=== PATIENT | female | born 1960 | race African-American/Black ===

== ENCOUNTER 2019-07-08 08:13 | Outpatient (CLI) | payer MEDICARE ==
--- NOTE | 2019-07-08 09:00 | MMO ---
Bilateral MAMMO Bilat Screen DDI+TAINA. CLINICAL HISTORY: Patient is 59 years old and is seen for screening. The patient has the following family history of breast cancer: maternal grandmother. The patient has no personal history of cancer. The patient has a history of left Excisional Biopsy in 1991 - negative biopsy. VIEWS: The views performed were: bilateral craniocaudal with tomosynthesis and bilateral mediolateral oblique with tomosynthesis. FILMS COMPARED: The present examination has been compared to prior imaging studies performed at on 05/20/2012 and 10/18/2014. This study has been interpreted with the assistance of computer-aided detection. MAMMOGRAM FINDINGS: There are scattered fibroglandular densities. There is a focal asymmetry with associated calcifications seen in the central region of the right breast. In the left breast, there are no suspicious masses, calcifications or areas of architectural distortion. IMPRESSION: FOCAL ASYMMETRY IN THE RIGHT BREAST REQUIRES ADDITIONAL EVALUATION. AN ULTRASOUND EXAM IS RECOMMENDED IF NEEDED. RECOMMEND DIAGNOSTIC MAMMOGRAM. THE RESULTS OF THIS EXAM WERE SENT TO THE PATIENT. ACR BI-RADS Category 0 - Incomplete: Need additional imaging evaluation. [facility] will notify the patient of the need for additional imaging services. MAMMOGRAPHY NOTE: 1. A negative mammogram report should not delay a biopsy if a dominant of clinically suspicious mass is present. 2. Approximately 10% to 15% of breast cancers are not detected by mammography. 3. Adenosis and dense breasts may obscure an underlying neoplasm. Reported by: NATHALIA NAVARRO MD Electonically Signed: [id number]
== END 2019-07-08 08:14 | disposition home or self-care (01) ==
LOC: BICMAMMO 08:13
PROVIDERS: ATTEND Family Medicine
DX: Z12.31 Encounter for screening mammogram for malignant neoplasm of breast (principal); Z80.3 Family history of malignant neoplasm of breast; N64.89 Other specified disorders of breast
CPT/HCPCS: 77063; 77067

== ENCOUNTER 2019-07-18 14:21 | Outpatient (CLI) | payer MEDICARE ==
--- NOTE | 2019-07-18 14:54 | MMO ---
Right Breast MAMMO Unilat Diag DDI RT+TAINA. CLINICAL HISTORY: Patient is 59 years old and is seen for diagnostic exam. The patient has a history of left Excisional Biopsy in 1991 - negative biopsy. VIEWS: The views performed were: . FILMS COMPARED: The present examination has been compared to prior imaging studies performed at 10/18/2014 and 07/08/2019. This study has been interpreted with the assistance of computer-aided detection. MAMMOGRAM FINDINGS: There are scattered fibroglandular densities. The new calcs have an indeterminate appearance and should be biopsied. IMPRESSION: FINDING IN THE RIGHT BREAST IS SUSPICIOUS. A STEREOTACTIC BREAST BIOPSY IS RECOMMENDED. THE RESULTS OF THIS EXAM WERE SENT TO THE PATIENT. ACR BI-RADS Category 4 - Suspicious abnormality - biopsy should be considered MAMMOGRAPHY NOTE: 1. A negative mammogram report should not delay a biopsy if a dominant of clinically suspicious mass is present. 2. Approximately 10% to 15% of breast cancers are not detected by mammography. 3. Adenosis and dense breasts may obscure an underlying neoplasm. Reported by: ARMANDO KIRAN MD Electonically Signed: [id number]
== END 2019-07-18 14:22 | disposition home or self-care (01) ==
LOC: BICMAMMO 14:21
PROVIDERS: ATTEND Family Medicine
DX: R92.2 Inconclusive mammogram (principal)
CPT/HCPCS: 77065; G0279

== ENCOUNTER 2019-09-02 07:31 | Outpatient (CLI) | payer MEDICARE ==
[2019-09-02 12:39] LABS: #Eosinphils 0.1 thou/uL (0.0-0.7); #Lymphocytes 3.3 thou/uL (1.20-3.40); #Monocytes 0.3 thou/uL (0.11-0.59); #Neutrophils 3.3 thou/uL (1.40-6.50); %Basophils 0.2 % (0.0-1.0); %Eosinophils 1.5 % (0.0-10.0); %Lymphocytes 46.3 % (21.0-51.0); %Monocytes 4.9 % (0.0-10.0); %Neutrophils 47.2 % (42.0-75.0); Hemoglobin 14.4 g/dL (12.0-16.0); Mean Corpuscular HGB CONC 32.4 g/dL (32.0-36.0); Mean Corpuscular Hemoglobin 27.8 pg (27.0-31.0); Mean Corpuscular Volume 85.9 fL (78.0-98.0); Mean Platelet Volume 7.9 fL (7.4-10.4); Platelet Count 255 thou/uL (130-400); RBC Distribution Width 12.7 % (11.5-14.5); Red Blood Cell (RBC) Count 5.18 mill/uL (4.20-5.40); White Blood Cell (WBC) Count 7.1 thou/uL (4.8-10.8)
[2019-09-02 13:02] LABS: Anion Gap 13 mmol/L (10-20); BUN (Urea Nitrogen) 11 mg/dL (9.8-20.1); Calc. Creatinine Clearance 0 mL/min (70-130); Calcium 9.6 mg/dL (7.8-10.44); Carbon Dioxide 26 mmol/L (22-29); Chloride 106 mmol/L (98-107); Estimated GFR-MDRD 90; Glucose 124 mg/dL (70-105); Potassium 4.5 mmol/L (3.5-5.1); Sodium 140 mmol/L (136-145)
== END 2019-09-02 07:32 | disposition home or self-care (01) ==
LOC: LABBT 07:31
PROVIDERS: ATTEND Specialist
DX: Z01.812 Encounter for preprocedural laboratory examination (principal); R92.1 Mammographic calcification found on diagnostic imaging of breast
CPT/HCPCS: 80048; 85025

== ENCOUNTER 2019-09-06 06:51 | Day surgery (SDC) | payer MEDICARE ==
[2019-09-02 12:07] VITALS: BMI 42.3
[2019-09-06] MEDS ORDERED: Acetaminophen 500 MG TAB ONE (07:53)
[2019-09-06] MEDS ORDERED: Ketorolac Tromethamine 30 MG/ML VIAL ONE (07:53)
[2019-09-06] MEDS ORDERED: Midazolam HCl 2 mg/2 ml Vial ONE (08:24)
[2019-09-06] MEDS ORDERED: HYDROmorphone 0.5 MG/0.5 ML SYRINGE ONE (08:24)
[2019-09-06] MEDS ORDERED: Fentanyl 100 MCG/2 ML VIAL ONE (08:24)
[2019-09-06] MEDS ORDERED: Lidocaine 1% w/Epinephrine 1:100K 20 ML VIAL ONE (08:26)
[2019-09-06] MEDS ORDERED: Bupivacaine 0.25% HCL 30 ML VIAL ONE (08:26)
--- NOTE | 2019-09-06 09:47 | MMO ---
Needle localization right breast microcalcifications mammographic guided HISTORY: Abnormal mammogram. Microcalcifications. FINDINGS: After explaining the procedure and answering all questions, the microcalcification cluster deep within the central aspect of the right breast was visualized. Sterile technique, buffered local anesthesia, mammographic guidance, and a medial approach were used to carefully advance a 10 cm [place] needle and wire through the cluster of microcalcifications. Needle tip remained 3.0 cm beyond the center of the microcalcifications. Final images were marked and sent with the patient for day surgery. Patient tolerated the procedure well and was transferred in good condition. IMPRESSION: Technically successful needle localization right breast microcalcifications.
[2019-09-06] MEDS ORDERED: PROPOFOL 200 MG/20 ML VIAL ONE (09:59)
[2019-09-06] MEDS ORDERED: Dexamethasone 20 MG/5 ML VIAL ONE (09:59)
[2019-09-06] MEDS ORDERED: Lidocaine 1% PF 5 ML VIAL ONE (09:59)
[2019-09-06] MEDS ORDERED: Ondansetron PF 4 MG/2 ML Vial ONE (09:59)
--- NOTE | 2019-09-06 12:05 | MMO ---
MAMMO Surgial Specimen HISTORY: Needle localization of breast calcifications. COMPARISON: Needle localization exam done earlier. FINDINGS: This breast specimen confirms the presence of breast calcifications. IMPRESSION: Successfully obtained breast calcifications.
--- NOTE | 2019-09-06 18:13 | OP ---
DATE OF PROCEDURE: 09/06/2019 PREOPERATIVE DIAGNOSIS: Right breast calcifications. POSTOPERATIVE DIAGNOSIS: Right breast calcifications. PROCEDURE PERFORMED: Mammographic needle localized right breast excisional biopsy. ANESTHESIA: General endotracheal. INDICATIONS FOR PROCEDURE: The patient is a 59-year-old black female. Recent mammography reveals concerning cluster of microcalcifications in the central right breast. She has declined stereotactic biopsy secondary to anxiety. She presents at this time for mammographic needle localized excisional breast biopsy. DESCRIPTION OF PROCEDURE: The patient was taken to the mammography suite preoperatively, where mammographic needle localization of the calcifications was performed. This was performed with a 9 cm localizing needle and was passed in a [id number] fashion. Informed consent was obtained. She was taken to the operating room, where general anesthesia was obtained with the patient in supine position. Right breast and localized needle were prepped with ChloraPrep and draped in sterile fashion. The mammogram of the localizing needle was examined revealing that the calcifications were on the midportion of the needle. It was not felt to be necessary to dissect along the entire 9 cm of the needle. I, therefore, created a counterincision more medially on the breast. Dissection was carried through skin and subcutaneous tissue. Once I was about a centimeter into the breast, I dissected medially to find the localizing needle. This was identified at the point that it was about 6 cm from the tip of the needle. At this point, the needle was removed, and the wire was replaced to the incision. The tissue into which the wire entered was grasped with Allis clamps. A wide dissection of the tissue into which the wire entered was performed using a combination of electrocautery and sharp dissection. The specimen was removed intact. It was oriented with sutures and submitted for specimen mammography. This revealed removal of microcalcifications within the specimen. The wound was irrigated, and meticulous hemostasis was obtained with electrocautery. Deep layers of the wound were closed with a running suture of 3-0 Monocryl. The biopsy cavity was then instilled with additional local anesthetic using a mix of 1% lidocaine with epinephrine as well as 0.25% Marcaine. Skin edges were approximated with running subcuticular suture of 4-0 Monocryl. Dermabond was placed externally. There were no complications. The patient tolerated the procedure well and was taken to recovery room in stable condition. Job ID: [id number]
== END 2019-09-06 11:25 | disposition home or self-care (01) ==
LOC: SDC 06:51
PROVIDERS: ATTEND Specialist
PROC: 0HBT3ZX Excision of Right Breast, Percutaneous Approach, Diagnostic (ICD-10-PCS; principal; 2019-09-06)
DX: D05.81 Other specified type of carcinoma in situ of right breast (principal); F41.9 Anxiety disorder, unspecified; E78.5 Hyperlipidemia, unspecified; J45.909 Unspecified asthma, uncomplicated; Z79.1 Long term (current) use of non-steroidal anti-inflammatories (NSAID); Z79.51 Long term (current) use of inhaled steroids; Z79.82 Long term (current) use of aspirin; Z79.899 Other long term (current) drug therapy; Z88.8 Allergy status to other drugs, medicaments and biological substances
CPT/HCPCS: 19281; 76098; 88307; 88341; 88342; J0690; J1100; J1170; J1885; J2001; J2250; J2405; J2704; J3010; S0020

== ENCOUNTER 2019-09-27 05:50 | Day surgery (SDC) | payer MEDICARE ==
[2019-09-26 13:40] VITALS: BMI 42.1
[2019-09-27] MEDS ORDERED: Acetaminophen 500 MG TAB ONE (06:06)
[2019-09-27] MEDS ORDERED: Ketorolac Tromethamine 30 MG/ML VIAL ONE ×2 (06:06→09:57)
[2019-09-27] MEDS ORDERED: Fentanyl 100 MCG/2 ML VIAL ONE ×3 (06:39→08:50)
[2019-09-27] MEDS ORDERED: Bupivacaine 0.25% HCL 30 ML VIAL ONE (06:51)
[2019-09-27] MEDS ORDERED: Lidocaine 1% w/Epinephrine 1:100K 20 ML VIAL ONE (06:51)
[2019-09-27] MEDS ORDERED: Ondansetron PF 4 MG/2 ML Vial ONE (09:57)
[2019-09-27] MEDS ORDERED: PHENYLEPHRINE-NS 100 MCG/ML 10 ML SYRINGE ONE (09:57)
[2019-09-27] MEDS ORDERED: Dexamethasone 20 MG/5 ML VIAL ONE (09:57)
[2019-09-27] MEDS ORDERED: PROPOFOL 200 MG/20 ML VIAL ONE (09:57)
[2019-09-27] MEDS ORDERED: Lidocaine 1% PF 5 ML VIAL ONE (09:57)
--- NOTE | 2019-09-27 11:15 | OP ---
DATE OF PROCEDURE: 09/27/2019 PREOPERATIVE DIAGNOSES: Right breast ductal carcinoma in situ, recent right breast excisional biopsy with positive margins. POSTOPERATIVE DIAGNOSES: Right breast ductal carcinoma in situ, recent right breast excisional biopsy with positive margins. PROCEDURE PERFORMED: Re-excision of right breast lumpectomy margins. ANESTHESIA: General endotracheal. INDICATIONS FOR PROCEDURE: The patient is an obese 59-year-old black female. She had undergone a right breast needle localized excisional biopsy of a large area of calcifications in the upper right breast. She would not tolerate a needle biopsy in the absence of surgery previously because of needle-related anxiety. Therefore, her initial surgery was an excisional biopsy. She proved to have a large field of ductal carcinoma in situ. The margins were reported as all being negative; however, they were all found to be very close except for the medial margin. She was therefore returned to the operating room at this time for re-excision of margins. DESCRIPTION OF PROCEDURE: Informed consent was obtained. The patient was taken to the operating room, where general endotracheal anesthesia was obtained with the patient in supine position. Right breast was prepped with ChloraPrep and draped in sterile fashion. Local anesthetic was infiltrated using a mixture of 0.25% Marcaine and 1% lidocaine with epinephrine. Prior incision was reopened. Dissection was carried into the breast. There was probably about a centimeter and a half of tissue deep to the skin before the biopsy cavity was encountered. The seroma was aspirated. I excised the biopsy cavity in 2 specimens, one as the superior margin and the other as the inferior margin. The superior margin curved around to the medial and the lateral aspect as well as down on to the posterior aspect. The inferior margin curved around to the medial aspect, the lateral aspect and the posterior aspect. The entire biopsy cavity was re-excised with these 2 margins. They were each tagged for orientation with sutures. The wound was irrigated and all irrigant was aspirated. Meticulous hemostasis was obtained. The wound was closed in layers with 3-0 and 4-0 Monocryl suture. Additional local anesthetic was instilled into the wound and infiltrated into the breast. Dermabond was placed externally. There were no complications. The patient tolerated the procedure well and was taken to recovery room in stable condition. Job ID: [id number]
== END 2019-09-27 10:26 | disposition home or self-care (01) ==
LOC: SDC 05:50
PROVIDERS: ATTEND Specialist
PROC: 0HBT0ZZ Excision of Right Breast, Open Approach (ICD-10-PCS; principal; 2019-09-27)
DX: D05.11 Intraductal carcinoma in situ of right breast (principal); N60.31 Fibrosclerosis of right breast; E78.5 Hyperlipidemia, unspecified; J45.909 Unspecified asthma, uncomplicated; Z79.82 Long term (current) use of aspirin; Z79.899 Other long term (current) drug therapy; Z88.8 Allergy status to other drugs, medicaments and biological substances
CPT/HCPCS: 88307; J0690; J1100; J1885; J2001; J2405; J2704; J3010; S0020

== ENCOUNTER 2019-12-05 13:05 | Outpatient (CLI) | payer MEDICARE, OTHER ==
--- NOTE | 2019-12-05 13:53 | BD ---
Exam: DEXA Bone Density Indications: Post-menopausal screening. Lumbar Spine: BMD (g/cm2) L1 0.969 T-Score: -0.2 L2 0.990 T-Score: -0.3 L3 0.971 T-Score: -1.0 L4 1.056 T-Score: 0.0 L1-L4 1.000 T-Score: -0.4 Femoral Neck: 0.714 T-Score: -1.2 Total Femur: 0.941 T-Score: 0.0 Impression: 1. Bone mineral density lumbar spine within normal range. 2. Bone mineral density of the femoral neck indicates osteopenia. 10-year fracture risk: Major osteoporotic fracture: 3.5% Hip fracture: 0.2% POS: [facility]
== END 2019-12-05 13:06 | disposition home or self-care (01) ==
LOC: BICMAMMO 13:05
PROVIDERS: ATTEND Internal Medicine Hematology & Oncology
DX: Z13.820 Encounter for screening for osteoporosis (principal); M85.859 Other specified disorders of bone density and structure, unspecified thigh; Z78.0 Asymptomatic menopausal state
CPT/HCPCS: 77080

== ENCOUNTER 2020-05-04 08:32 | Outpatient (CLI) | payer MEDICARE | END 2020-05-04 08:33 | disposition home or self-care (01) | LOC: DTY/OP 08:32 | PROVIDERS: ATTEND Specialist | DX: Z01.818 Encounter for other preprocedural examination (principal); E66.01 Morbid (severe) obesity due to excess calories | CPT/HCPCS: 97802 ==

== ENCOUNTER 2020-05-28 07:12 | Outpatient (CLI) | payer MEDICARE ==
[2020-05-29 15:35] LABS: SARS-CoV-2 MS2 Positive; SARS-CoV-2 N Gene Negative; SARS-CoV-2 S Gene Negative; SARS-CoV-2 by NAA Not Detected (NotDetected); SARS-CoV-2 orf1ab Negative
== END 2020-05-28 07:13 | disposition home or self-care (01) ==
LOC: LABBT 07:12
PROVIDERS: ATTEND Specialist
DX: Z01.818 Encounter for other preprocedural examination (principal); Z20.828 Contact with and (suspected) exposure to other viral communicable diseases; E66.01 Morbid (severe) obesity due to excess calories
CPT/HCPCS: 93005; U0003; 87635; 93010

== ENCOUNTER 2020-05-28 12:00 | Inpatient (IN) | payer MEDICARE ==
[2020-05-30 10:37] VITALS: BMI 41.6
[2020-05-31] MEDS ORDERED: Ketorolac Tromethamine 30 MG/ML VIAL ONE (08:09)
[2020-05-31] MEDS ORDERED: cefOXitin Sodium/Dextrose 2 GM/50 ML BAG ONE (08:09)
[2020-05-31] MEDS ORDERED: Heparin 5,000 UNITS/ML VIAL ONE (08:09)
[2020-05-31] MEDS ORDERED: Acetaminophen 500 MG TAB ONE (08:09)
[2020-05-31] MEDS ORDERED: PHENYLEPHRINE-NS 100 MCG/ML 10 ML SYRINGE ONE (09:41)
[2020-05-31] MEDS ORDERED: Dexamethasone 20 MG/5 ML VIAL ONE (09:41)
[2020-05-31] MEDS ORDERED: Glycopyrrolate 0.2 MG/ML 5 ML SYRINGE ONE (09:41)
[2020-05-31] MEDS ORDERED: PROPOFOL 200 MG/20 ML VIAL ONE (09:41)
[2020-05-31] MEDS ORDERED: Rocuronium Bromide 10 MG/ML (10ML VIAL) ONE (09:41)
[2020-05-31] MEDS ORDERED: Lidocaine 1% PF 5 ML VIAL ONE (09:41)
[2020-05-31] MEDS ORDERED: Ondansetron PF 4 MG/2 ML Vial ONE (09:41)
[2020-05-31] MEDS ORDERED: Lidocaine 1% w/Epinephrine 1:100K 20 ML VIAL ONE (09:43)
[2020-05-31] MEDS ORDERED: Bupivacaine 0.25% HCL 30 ML VIAL ONE (09:43)
[2020-05-31] MEDS ORDERED: HYDROmorphone 0.5 MG/0.5 ML SYRINGE ONE (09:52)
[2020-05-31] MEDS ORDERED: Fentanyl 100 MCG/2 ML VIAL ONE ×3 (09:52→13:41)
[2020-05-31] MEDS ORDERED: HYDROmorphone 2 MG/ML VIAL SLOW IVP PRN (11:40)
[2020-05-31] MEDS ORDERED: Meperidine HCl/PF 25 MG/ML VIAL SLOW IVP PRN (11:40)
[2020-05-31] MEDS ORDERED: Promethazine HCl 25 MG/ML VIAL SLOW IVP PRN (11:40)
[2020-05-31] MEDS ORDERED: Ondansetron HCl/PF 4 MG/2 ML Vial IVP PRN (11:40)
[2020-05-31] MEDS ORDERED: SUGAMMADEX SODIUM 200 MG/2 ML VIAL ONE (12:05)
[2020-05-31] MEDS ORDERED: Promethazine HCl 25 MG/ML VIAL IM PRN (16:24)
[2020-05-31] MEDS ORDERED: hydrALAZINE 20 MG/ML VIAL SLOW IVP PRN (16:24)
[2020-05-31] MEDS ORDERED: Dextrose 50% Abboject 50 ML SYRINGE SLOW IVP PRN (16:24)
[2020-05-31] MEDS ORDERED: diphenhydrAMINE 50 MG/ML VIAL IVP PRN (16:24)
[2020-05-31] MEDS ORDERED: Dextrose 5% in Water 1,000 ML IV PRN (16:24)
[2020-05-31] MEDS ORDERED: Morphine 4 MG/ML VIAL SLOW IVP PRN (16:24)
[2020-05-31] MEDS ORDERED: Insulin Regular 300 UNITS/3 ML VIAL SC PRN (16:24)
[2020-05-31] MEDS ORDERED: Ondansetron PF 4 MG/2 ML Vial IVP PRN (16:24)
[2020-05-31] MEDS ORDERED: Morphine 2 MG/ML VIAL SLOW IVP PRN (16:24)
[2020-05-31] MEDS: Hydrocodone-Acetamin 15 ML UDCUP PO PRN ×2 (17:10→22:10)
[2020-05-31] MEDS: 1/2 NS w/KCL 20 mEq 1,000 ML IV SCH ×2 (17:11→20:17)
[2020-05-31] MEDS: Ketorolac Tromethamine 30 MG/ML VIAL IVP SCH ×2 (17:12→23:41)
[2020-05-31] MEDS ORDERED: Enoxaparin Sodium 40 MG/0.4 ML SYRINGE SC SCH (21:00)
[2020-06-01 05:34] LABS: Band 9 % (5-11); Hemoglobin 12.3 g/dL (12.0-16.0); Lymphocytes 14 % (21-51); MDiff Complete? YES; Mean Corpuscular HGB CONC 32.8 g/dL (32.0-36.0); Mean Corpuscular Hemoglobin 27.9 pg (27.0-31.0); Mean Corpuscular Volume 84.9 fL (78.0-98.0); Mean Platelet Volume 7.6 fL (7.4-10.4); Monocytes 6 % (0-10); Neutrophil 71 % (42-75); Platelet Count 253 thou/uL (130-400); Platelet Morphology Comment Appears Adequate; RBC Distribution Width 12.2 % (11.5-14.5); Red Blood Cell (RBC) Count 4.42 mill/uL (4.20-5.40); White Blood Cell (WBC) Count 13.5 thou/uL (4.8-10.8)
[2020-06-01 05:42] LABS: Anion Gap 11 mmol/L (10-20); BUN (Urea Nitrogen) 12 mg/dL (9.8-20.1); Calc. Creatinine Clearance 126 mL/min (70-130); Calcium 8.8 mg/dL (7.8-10.44); Carbon Dioxide 27 mmol/L (22-29); Chloride 104 mmol/L (98-107); Estimated GFR-MDRD 88; Glucose 136 mg/dL (70-105); Potassium 4.3 mmol/L (3.5-5.1); Sodium 138 mmol/L (136-145)
[2020-06-01] MEDS: Ketorolac Tromethamine 30 MG/ML VIAL IVP SCH (05:47)
[2020-06-01 08:11] VITALS: BP 141/83; TEMP 98.1
[2020-06-01] MEDS ORDERED: Anastrozole 1 MG TAB PO SCH (09:00)
[2020-06-01] MEDS ORDERED: Pantoprazole 40 MG VIAL IVP SCH (09:00)
[2020-06-01] MEDS: 1/2 NS w/KCL 20 mEq 1,000 ML IV SCH (10:41)
[2020-06-01] MEDS: Hydrocodone-Acetamin 15 ML UDCUP PO PRN (10:44)
--- NOTE | 2020-06-03 22:07 | OP ---
DATE OF PROCEDURE: 05/31/2020 PREOPERATIVE DIAGNOSIS: Morbid obesity with multiple comorbidities. POSTOPERATIVE DIAGNOSIS: Morbid obesity with multiple comorbidities with hiatal hernia. PROCEDURE PERFORMED: Laparoscopic vertical sleeve gastrectomy using the ViSiGi device, repair of hiatal hernia. ANESTHESIA: General endotracheal. INDICATIONS: The patient is a 60-year-old morbidly obese black female. She had completed preoperative education and evaluation, was taken to the operating room at this time for a sleeve gastrectomy. DESCRIPTION OF OPERATION: Informed consent was obtained. The patient was taken to the operating room where general endotracheal anesthesia was obtained with the patient in supine position. Abdomen was prepped with ChloraPrep and draped in sterile fashion. Local anesthetic was infiltrated and 5 mm supraumbilical incision was created through which Veress needle was passed to the peritoneal cavity and pneumoperitoneum established using carbon dioxide up to a pressure of 15 mmHg. A 5 mm trocar port was passed through this same incision. Laparoscopic camera was passed through this port. Under direct vision, 4 additional ports were placed including bilateral 5 mm subcostal ports, a 12 mm right paramedian port and a 15 mm left paramedian port. A 5 mm epigastric incision was created through which Nathansen retractor was passed into the abdominal cavity and used to retract the left lobe of the liver. The patient was placed into reverse Trendelenburg position. The ViSiGi device was advanced within the stomach and used to decompress this. The pylorus was identified and beginning 4 cm proximal to the pylorus, the omentum and vascular tissue along the greater curvature was divided using the LigaSure in an ascending fashion up to the angle of His. All posterior adhesions were mobilized. The short gastric vessels were carefully divided and then hemostasis was maintained using the LigaSure. Once this was completely mobilized, the ViSiGi was carefully positioned at the level of the pylorus and placed to suction, which was clearly defining the lesser curvature of the stomach. The gastrectomy was then performed using a series of fires of the [place] stapler using a green load followed by a gold load and a series of blue loads until completion of the gastrectomy. The ViSiGi along the lesser curvature was used as a size 36 bougie to guide in the gastric division. Care was taken to avoid narrowing the incisura or the gastroesophageal junction. The integrity of the staple line was then assessed by insufflating gas through the ViSiGi while irrigating along the staple line. There was no evidence of an air leak. There was no evidence of bleeding along the staple line. The resected stomach was then removed through the 15 mm port and the fascia was closed with 0 Vicryl suture using a GraNee needle. I then closed the 12 mm port also using the GraNee needle and 0 Vicryl suture. The Nathansen retractor was removed. All ports and instruments were removed under direct vision. All irrigant was aspirated. Pneumoperitoneum was carefully evacuated. 0.25% Marcaine with epinephrine was infiltrated into each port site. Skin edges approximated with 4-0 Monocryl subcuticular suture. Dermabond was placed externally. There were no complications. The patient tolerated the procedure well and was taken to recovery room in stable condition. FINDINGS: During the course of dissection of the greater curve, it was immediately apparent that the patient had a hiatal hernia. The hiatus was carefully dissected circumferentially. The esophagus was mobilized down to the abdominal cavity. The ViSiGi was in place within the esophagus, which functioned as a calibrating bougie. The hiatus was closed with a single interrupted suture of 2-0 Ethibond, which was secured with the tie knot device. Following repair of the hiatal hernia, the sleeve gastrectomy was performed in the usual fashion as outlined. There were no complications. Blood loss was negligible. She tolerated the procedure well and was taken to recovery room in stable condition. Job ID: [id number]
== END 2020-06-01 10:50 | disposition home or self-care (01) | DRG 621 ==
LOC: SURG A 05-31 07:37
PROVIDERS: ADMIT Specialist; ATTEND Specialist
PROC: 0DB64Z3 Excision of Stomach, Percutaneous Endoscopic Approach, Vertical (ICD-10-PCS; principal; 2020-05-31)
PROC: 0BQT4ZZ Repair Diaphragm, Percutaneous Endoscopic Approach (ICD-10-PCS; 2020-05-31)
DX: E66.01 Morbid (severe) obesity due to excess calories (principal); K44.9 Diaphragmatic hernia without obstruction or gangrene; E78.5 Hyperlipidemia, unspecified; J45.909 Unspecified asthma, uncomplicated; Z68.41 Body mass index [BMI] 40.0-44.9, adult; Z88.8 Allergy status to other drugs, medicaments and biological substances; Z90.710 Acquired absence of both cervix and uterus; Z79.899 Other long term (current) drug therapy; Z90.722 Acquired absence of ovaries, bilateral
CPT/HCPCS: 36415; 36416; 80048; 85025; 88307; 88312; 94760; C9113; J0694; J1100; J1170; J1644; J1650; J1885; J2405; J2704; J3010; J3480; S0020

== ENCOUNTER 2020-06-12 23:54 | Emergency (ER) | payer MEDICARE ==
[2020-06-13] MEDS ORDERED: Morphine 4 MG/ML VIAL ONE (00:14)
[2020-06-13] MEDS ORDERED: Ondansetron PF 4 MG/2 ML Vial ONE (00:14)
[2020-06-13 00:50] LABS: #Eosinphils 0.1 thou/uL (0.0-0.7); #Lymphocytes 1.8 thou/uL (1.20-3.40); #Monocytes 0.8 thou/uL (0.11-0.59); #Neutrophils 8.7 thou/uL (1.40-6.50); %Basophils 0.1 % (0.0-1.0); %Monocytes 7.3 % (0.0-10.0); %Neutrophils 75.6 % (42.0-75.0); Hemoglobin 15.4 g/dL (12.0-16.0); Mean Corpuscular HGB CONC 32.3 g/dL (32.0-36.0); Mean Corpuscular Hemoglobin 27.3 pg (27.0-31.0); Mean Corpuscular Volume 84.6 fL (78.0-98.0); Mean Platelet Volume 8.4 fL (7.4-10.4); Platelet Count 285 thou/uL (130-400); RBC Distribution Width 12.5 % (11.5-14.5); Red Blood Cell (RBC) Count 5.65 mill/uL (4.20-5.40); White Blood Cell (WBC) Count 11.5 thou/uL (4.8-10.8)
[2020-06-13 00:58] LABS: ALT (SGPT) 43 U/L (8-55); AST (SGOT) 37 U/L (5-34); Alkaline Phosphatase 88 U/L (40-110); Anion Gap 17 mmol/L (10-20); BUN (Urea Nitrogen) 18 mg/dL (9.8-20.1); Bilirubin, Total 0.9 mg/dL (0.2-1.2); Calc. Creatinine Clearance 0 mL/min (70-130); Calcium 9.9 mg/dL (7.8-10.44); Carbon Dioxide 25 mmol/L (22-29); Chloride 100 mmol/L (98-107); Estimated GFR-MDRD 88; Globulin 4.3 g/dL (2.4-3.5); Glucose 123 mg/dL (70-105); Lipase 18 U/L (8-78); Potassium 4.2 mmol/L (3.5-5.1); Protein, Total 8.3 g/dL (6.0-8.3); Sodium 138 mmol/L (136-145)
[2020-06-13] MEDS ORDERED: Thiamine 100 MG TAB ONE (02:17)
[2020-06-13 02:37] LABS: Bilirubin Negative (Negative); Blood, Urine Negative (Negative); Clarity Clear (Clear); Glucose, Urine (Dipstick) Normal (Negative); Ketone, Urine 60 mg/dL (Negative); Leukocyte Negative Leu/uL (Negative); Nitrite Negative (Negative); Protein, Urine (Dipstick) Negative (Neg-Trace); Urobilinogen Normal mg/dL (Less than 2); pH, Urine 5.5 (5.0-9.0)
[2020-06-13 02:38] LABS: Specific Gravity, Urine 1.055 (1.002-1.036)
--- NOTE | 2020-06-13 08:56 | CT ---
PRELIMINARY REPORT/[facility]/EMERGENCY AFTER HOURS PROCEDURE: EXAM: CT Abdomen and Pelvis with Intravenous Contrast CLINICAL HISTORY: F60, Pt reports decreased appetite, nausea, and "being unable to drink fluids" since her gastric slee ve sx on 05/31. ~100ML CONTRAST, PT UNABLE TO DRINK QUICKLY TECHNIQUE: Axial computed tomography images of the abdomen and pelvis with intravenous contrast. CONTRAST: With; ISOVUE 370,100mL COMPARISON: None provided. FINDINGS: LUNG BASES: Patchy groundglass and solid opacities throughout the visualized lung bases which is suspicious for p neumonia. LIVER: Diffuse hepatic steatosis. GALLBLADDER AND BILE DUCTS: Unremarkable. No calcified stone. No ductal dilation. PANCREAS: Unremarkable. SPLEEN: Unremarkable. ADRENAL GLANDS: Mild thickening of the left adrenal gland which is nonspecific. KIDNEYS, URETERS, AND BLADDER: 1.2 cm in the right kidney which measures slightly above the free fluid and is indeterminate and inco mpletely characterized on the study. No nephrolithiasis or nephrosis. STOMACH AND BOWEL: Status post gastric sleeve surgery. Oral contrast in the distal esophagus. No bowel obstruction. APPENDIX: Normal appendix. PERITONEUM: No free fluid. No free air. LYMPH NODES: No lymphadenopathy. REPRODUCTIVE: Status post hysterectomy. VASCULATURE: No aortic aneurysm. BONES: No fracture or suspicious osseous abnormality. ABDOMINAL WALL AND SOFT TISSUES: 3.5 cm spiculated soft tissue in the right breast which is incompletely included on the field of view for which mammography is recommended for further evaluation. IMPRESSION: Patchy groundglass and solid opacities throughout the visualized lung bases which is suspicious for m ultifocal pneumonia. 3.5 cm spiculated soft tissue in the right breast which is incompletely included on the field of view for which mammography is recommended for further evaluation. Status post gastric sleeve surgery. Oral contrast in the distal esophagus. No bowel obstruction. 1.2 cm in the right kidney which measures slightly above the free fluid and is indeterminate and inco mpletely characterized on the study. ELECTRONICALLY SIGNED BY: Padmini Escoto MD Jun 13, 2020 1:26:05 AM G[employer] STOCK [employer]ER This report is intended for review by the ordering physician only, in accordance of law. If you recei ve this report in error, please call [facility] at [phone]. FINAL REPORT ABDOMEN AND PELVIC CT SCAN WITH IV CONTRAST: EMERGENCY AFTER HOURS EXAM TIME: 10:05 AM. DATE: 06/13/2020. FINDINGS: A several centimeter spiculated mass in the central aspect of the right breast which could well repre sent post biopsy scar. It is incompletely evaluated on this study. Bilateral patchy multifocal pneu monia would certainly be consistent with COVID pneumonia. Small right renal cyst. No evidence for o ther significant acute process. POS: [facility]
[2020-06-13] MEDS ORDERED: Iopamidol-370 76% 500 ML 1 ML ONE (11:12)
--- NOTE | 2020-06-23 10:40 | EKG ---
Test Reason : LIGHTHEADED Blood Pressure : / mmHG Vent. Rate : 096 BPM Atrial Rate : 096 BPM P-R Int : 152 ms QRS Dur : 080 ms QT Int : 376 ms P-R-T Axes : 048 -10 014 degrees QTc Int : 475 ms Normal sinus rhythm Normal ECG Confirmed by JASMIN RUTLEDGE M.D. ([id number]), news videotape editor MARIA ANTONIA VOSS ([id number]) on 06/23/2020 10:40:12 AM Referred By: Confirmed By:JASMIN RUTLEDGE M.D.
== END 2020-06-13 03:29 | disposition home or self-care (01) ==
LOC: EEVIPCON 23:54 → ERS 23:54
DX: E86.0 Dehydration (principal); R10.12 Left upper quadrant pain; U07.1 COVID-19; J12.89 Other viral pneumonia; R10.816 Epigastric abdominal tenderness; J45.909 Unspecified asthma, uncomplicated; Z79.899 Other long term (current) drug therapy
CPT/HCPCS: 74177; 80053; 81003; 83605; 83690; 84484; 85025; 93005; 96361; 96374; J2270; J2405; Q9967

== ENCOUNTER 2020-07-09 12:48 | Day surgery (SDC) | payer MEDICARE, OTHER ==
[2020-07-09] MEDS ORDERED: Ondansetron PF 4 MG/2 ML Vial IVP PRN (12:54)
[2020-07-09] MEDS ORDERED: Sodium Chloride 0.9% 1,000 ML IV SCH (13:00)
[2020-07-09 13:22] VITALS: BP 102/67; TEMP 98.2
[2020-07-09] MEDS ORDERED: Multivitamins, Adult 10 ML, Thiamine HCl 100 MG in Sodium Chloride 0.9% 1,000 ML IV SCH (14:00)
== END 2020-07-09 15:49 | disposition home or self-care (01) ==
LOC: ONC/OP 12:48
PROVIDERS: ATTEND Specialist
DX: E86.0 Dehydration (principal); Z88.8 Allergy status to other drugs, medicaments and biological substances
CPT/HCPCS: 96361; 96365; 96366; J3411; J7050

== ENCOUNTER 2020-07-10 16:09 | Inpatient (IN) | payer MEDICARE, OTHER ==
[~2020-07-10 16:09] MED LIST: Iopamidol-370 76% 500 ML 1 ML ONE
[2020-07-10 17:48] LABS: #Eosinphils 0.2 thou/uL (0.0-0.7); #Lymphocytes 1.4 thou/uL (1.20-3.40); #Monocytes 0.5 thou/uL (0.11-0.59); %Basophils 0.1 % (0.0-1.0); %Eosinophils 2.7 % (0.0-10.0); %Lymphocytes 17.3 % (21.0-51.0); %Monocytes 6.4 % (0.0-10.0); %Neutrophils 73.5 % (42.0-75.0); Mean Corpuscular Hemoglobin 27.4 pg (27.0-31.0); Mean Corpuscular Volume 85.7 fL (78.0-98.0); Mean Platelet Volume 8.4 fL (7.4-10.4); Platelet Count 228 thou/uL (130-400); RBC Distribution Width 12.9 % (11.5-14.5); Red Blood Cell (RBC) Count 5.13 mill/uL (4.20-5.40); White Blood Cell (WBC) Count 8.2 thou/uL (4.8-10.8)
--- NOTE | 2020-07-10 17:54 | RAD ---
EXAM: Single view of the chest HISTORY: Dyspnea. Recent gastric sleeve surgery COMPARISON: 06/13/2020 FINDINGS: Single view of the chest shows a normal sized cardiomediastinal silhouette. Low lung volum es are present. Opacities are seen in both lung bases which may be atelectasis or infiltrates. No acute osseous abnormality. IMPRESSION: Bibasilar atelectasis versus infiltrates.
[2020-07-10 18:05] LABS: ALT (SGPT) 59 U/L (8-55); AST (SGOT) 61 U/L (5-34); Albumin 3.1 g/dL (3.5-5.0); Alkaline Phosphatase 67 U/L (40-110); Anion Gap 15 mmol/L (10-20); BUN (Urea Nitrogen) 7 mg/dL (9.8-20.1); Bilirubin, Total 0.8 mg/dL (0.2-1.2); Calc. Creatinine Clearance 0 mL/min (70-130); Calcium 8.8 mg/dL (7.8-10.44); Carbon Dioxide 24 mmol/L (22-29); Chloride 104 mmol/L (98-107); Globulin 3.4 g/dL (2.4-3.5); Glucose 104 mg/dL (70-105); Potassium 3.9 mmol/L (3.5-5.1); Protein, Total 6.5 g/dL (6.0-8.3); Sodium 139 mmol/L (136-145)
--- NOTE | 2020-07-10 19:07 | CT ---
EXAM: CTA of the chest HISTORY: Shortness of breath ever since gastric sleeve surgery on May 31. COMPARISON: Mammogram 07/18/2019, chest x-ray 07/10/2020, CT abdomen/pelvis 06/13/2020 TECHNIQUE: Multiple contiguous axial images were obtained a CTA of the chest with contrast per pulmon loreta embolism protocol. 3-D oblique MIP reformats and direct coronal reformats were performed. FINDINGS: HEART: Normal in size without focal cardiac abnormality. PULMONARY ARTERIES: Normal in caliber without filling defects to suggest pulmonary emboli. MEDIASTINUM: No hilar or mediastinal lymphadenopathy. LUNGS: Peripheral opacities in both lower lobes and in the dependent aspect of the right middle lobe have slightly worsened compared to the prior CT.. PLEURAL SPACE: No pleural effusion or pneumothorax. CHEST WALL SOFT TISSUES: Postsurgical changes are seen in the right breast. VISUALIZED OSSEOUS STRUCTURES: Degenerative changes in the spine. VISUALIZED SUBDIAPHRAGMATIC STRUCTURES: Status post gastric sleeve procedure. There is diffuse fatty infiltration of the liver. IMPRESSION: 1. No evidence of pulmonary thromboembolism 2. Multifocal opacities in the lungs. This could represent multifocal pneumonia or atelectasis.
[2020-07-10] MEDS ORDERED: Cefepime 2 GM VIAL ONE (19:37)
[2020-07-10 19:43] LABS: SARS-CoV-2 NAA Rapid Test Not Detected (NotDetected)
[2020-07-10] MEDS ORDERED: Vancomycin HCl 1.75 GM in Sodium Chloride 0.9% 500 ML IVPB SCH (20:00)
[2020-07-10] MEDS ORDERED: Vancomycin 1.5 GRAM/300 ML BAG 1.5 GM in Premix Bag 1 BAG IVPB SCH (20:00)
--- NOTE | 2020-07-10 21:18 | PDOC.HHP ---
Hospitalist HPI - History of Present Illness Shortness of breath History of Present Illness: This is a 60-year-old female patient with a history of asthma, breast cancer who presents with shortness of breath worsening for about a month. Symptoms started after she had gastric sleeve surgery on 05/31/[address] Ya. Symptoms of become progressively worse she went to see her PCP today who advised that she come to the ED for further evaluation. Initial concerns were for pulmonary embolism however CTA is negative. Chest imaging however concerning for possible lower lobe pneumonia versus atelectasis. An earlier CT of the abdomen done on 06/13/20 noted bilateral groundglass opacification concerning for possible pneumonia. Apparently this was noted treated On arrival her BP was 122/78, respiratory 23, pulse 113, saturating 97% on 2 L oxygen. CBC as well as BMP were essentially within normal limits. Troponin was 0.026, lactate was 1.5 and BNP was 13.4. EKG showed sinus tachycardia. She was started on 500 mils bolus normal saline, vancomycin and cefepime in the ED. On my evaluation patient notes ongoing shortness of breath without cough or chest pain or starting after the surgery. She denies any headache fever abdominal pain diarrhea constipation. She denies dysuria frequency. She has generally felt better since arrival. Hospitalist ROS - Review of Systems Constitutional: denies: fever, chills, sweats Respiratory: reports: shortness of breath, hemoptysis, SOB with excertion. denies: cough, dry Cardiovascular: denies: chest pain, palpitations, orthopnea, paroxysmal noc. dyspnea Gastrointestinal: denies: nausea, vomiting, abdominal pain, diarrhea Genitourinary: denies: dysuria, frequency, incontinence, hematuria Neurological: denies: weakness, numbness, incoordination, change in speech All other systems reviewed; all pertinent +/- noted in HPI/Subj - Medication Medications: Medications: Anastrozole Allergies: Propanolol. Hospitalist History - Past Medical History Other Medical History: Breast cancer, asthma. - Past Surgical History Other Surgical History: Lumpectomy - Family History Other Family History: Asthma. - Social History Smoking Status: Never smoker Alcohol: reports: None Living Situation: With Family Activity level: independent ambulation Hospitalist Results - Labs Result Diagrams: 07/12/20 10:13 07/12/20 10:13 Lab results: WBC 8.2 thou/uL (4.8-10.8) 07/10/20 17:39 Hgb 14.0 g/dL (12.0-16.0) 07/10/20 17:39 Hct 44.0 % (36.0-47.0) 07/10/20 17:39 MCV 85.7 fL (78.0-98.0) 07/10/20 17:39 Plt Count 228 thou/uL (130-400) 07/10/20 17:39 Neutrophils % 73.5 % (42.0-75.0) 07/10/20 17:39 Sodium 139 mmol/L (136-145) 07/10/20 17:37 Potassium 3.9 mmol/L (3.5-5.1) 07/10/20 17:37 Chloride 104 mmol/L (98-107) 07/10/20 17:37 Carbon Dioxide 24 mmol/L (22-29) 07/10/20 17:37 BUN 7 mg/dL (9.8-20.1) L 07/10/20 17:37 Creatinine 0.62 mg/dL (0.6-1.1) 07/10/20 17:37 Glucose 104 mg/dL (70-105) 07/10/20 17:37 Lactic Acid 1.5 mmol/L (0.5-2.2) 07/10/20 19:30 Calcium 8.8 mg/dL (7.8-10.44) 07/10/20 17:37 Total Bilirubin 0.8 mg/dL (0.2-1.2) 07/10/20 17:37 AST 61 U/L (5-34) H 07/10/20 17:37 ALT 59 U/L (8-55) H 07/10/20 17:37 Alkaline Phosphatase 67 U/L (40-110) 07/10/20 17:37 Troponin I 0.026 ng/mL (< 0.028) 07/10/20 17:39 B-Natriuretic Peptide 13.4 pg/mL (0-100) 07/10/20 17:37 Serum Total Protein 6.5 g/dL (6.0-8.3) 07/10/20 17:37 Albumin 3.1 g/dL (3.5-5.0) L 07/10/20 17:37 Hospitalist H&P A/P - Plan Plan: This is a 60-year-old female patient history of asthma who presents with worsening shortness of breath after she had gastric sleeve surgery a little over a month ago. Symptoms became progressively worse and due to concerns for possible PE PCP sent her here for further evaluation. Imaging concerning for pneumonia Bilateral lower lobe pneumonia Was started on vancomycin and cefepime We will change cefepime to Zosyn to cover more broadly for possible aspiration given that she is postop for gastric sleeve surgery. We will follow-up on cultures Incentive spirometry Tachycardia Possibly reaction to infection and hypoxia Will continue monitoring Asthma DuoNeb scheduled/as needed Oral prednisone Monitor History of breast cancer Continue anastrozole 3.5 cm spiculated tissue noted on area CT This may need to be followed if it has not already been VT prophylaxisLovenox CODE STATUSfull
[2020-07-10] MEDS ORDERED: Piperacillin/Tazobactam 4.5 GM in Sodium Chloride 0.9% 100 ML IVPB SCH (22:00)
--- NOTE | 2020-07-10 22:26 | PDOC.FMACP ---
Advance Care Planning - Note Summary: Advanced Care Planning was discussed. The diagnosis, prognosis and goals of care were discussed. Surrogate decision-maker is her . She is full code.
[2020-07-11] MEDS: Piperacillin/Tazobactam 4.5 GM in Sodium Chloride 0.9% 100 ML IVPB SCH ×3 (01:29→18:22)
[2020-07-11 04:39] LABS: #Eosinphils 0.2 thou/uL (0.0-0.7); #Lymphocytes 1.4 thou/uL (1.20-3.40); #Monocytes 0.6 thou/uL (0.11-0.59); #Neutrophils 5.9 thou/uL (1.40-6.50); %Basophils 0.2 % (0.0-1.0); %Eosinophils 2.6 % (0.0-10.0); %Lymphocytes 17.4 % (21.0-51.0); %Monocytes 7.4 % (0.0-10.0); %Neutrophils 72.4 % (42.0-75.0); Hemoglobin 11.8 g/dL (12.0-16.0); Mean Corpuscular HGB CONC 30.6 g/dL (32.0-36.0); Mean Corpuscular Hemoglobin 25.8 pg (27.0-31.0); Mean Corpuscular Volume 84.2 fL (78.0-98.0); Mean Platelet Volume 8.7 fL (7.4-10.4); Platelet Count 216 thou/uL (130-400); RBC Distribution Width 12.8 % (11.5-14.5); White Blood Cell (WBC) Count 8.1 thou/uL (4.8-10.8)
[2020-07-11 05:03] LABS: Anion Gap 12 mmol/L (10-20); BUN (Urea Nitrogen) 7 mg/dL (9.8-20.1); Calc. Creatinine Clearance 0 mL/min (70-130); Carbon Dioxide 25 mmol/L (22-29); Chloride 104 mmol/L (98-107); Glucose 110 mg/dL (70-105); Potassium 3.2 mmol/L (3.5-5.1); Sodium 138 mmol/L (136-145)
[2020-07-11 05:14] VITALS: BMI 35.9
[2020-07-11] MEDS: predniSONE 20 MG TAB PO SCH (09:18)
[2020-07-11] MEDS: Vancomycin 1 GM in Premix Bag 1 BAG IVPB SCH ×2 (09:18→22:29)
[2020-07-11] MEDS: Enoxaparin Sodium 40 MG/0.4 ML SYRINGE SC SCH (09:18)
[2020-07-11] MEDS ORDERED: Potassium Chloride 20 MEQ TAB PO SCH (10:30)
--- NOTE | 2020-07-11 16:38 | PDOC.HOSPP ---
- Subjective Encounter Date: 07/11/20 Encounter Time: 10:00 Subjective: F/u: Pneumonia The patient reports SOB while ambulating to the bedroom door. She denies cough, fever, sore throat, muscle weakness The patient ambulated and desaturated to 85% on room air walking and her heart rate increased to 150. On room air she was 89-90% She ambulated with 1L and improved to 93-95% - Objective Vital Signs & Weight: Vital Signs (12 hours) Temp Pulse Pulse Pulse Resp BP BP 07/11/20 14:30 112 H 133 H 102/57 L 105/58 L 07/11/20 11:28 07/11/20 11:17 97.6 F 120 H 16 07/11/20 11:05 100 16 07/11/20 07:25 98.4 F 110 H 12 07/11/20 06:55 85 14 07/11/20 04:41 98.2 F 93 20 BP Pulse Ox Pulse Ox Pulse Ox Pulse Ox Pulse Ox Pulse Ox 07/11/20 14:30 93 L 90 L 85 L 89 L 90 L 07/11/20 11:28 92 L 07/11/20 11:17 113/62 88 L 07/11/20 11:05 07/11/20 07:25 100/57 L 92 L 07/11/20 06:55 07/11/20 04:41 104/60 96 Weight Weight 203 lb I&O: 07/10/20 07/11/20 07/12/20 06:59 06:59 06:59 Intake Total 120 Output Total 400 Balance -280 Result Diagrams: 07/11/20 04:11 07/11/20 04:11 Hospitalist ROS - Review of Systems Constitutional: denies: fever, chills - Medication Medications: Active Medications Generic Name Dose Route Start Last Admin Trade Name Freq PRN Reason Stop Dose Admin Albuterol/Ipratropium 3 ml 07/10/20 22:30 07/11/20 14:13 Ipratropium/Albuterol Sulfate 3 Ml Neb NEB 3 ml [id number] TIMOTHY Administration Enoxaparin Sodium 40 mg 07/11/20 09:00 07/11/20 09:18 Enoxaparin Sodium 40 Mg/0.4 Ml Syringe SC 40 mg 0900 TIMOTHY Administration Vancomycin HCl 1 gm/ Device 200 mls @ 200 mls/hr 07/11/20 10:00 07/11/20 09:18 IVPB 200 mls 1000,2200 TIMOTHY Administration Piperacillin Sod/Tazobactam 100 mls @ 200 mls/hr 07/11/20 02:00 07/11/20 09:25 Sod 4.5 gm/ Sodium Chloride IVPB 100 mls 0200,1000,1800 TIMOTHY Administration Prednisone 40 mg 07/11/20 08:00 07/11/20 09:18 Prednisone 20 Mg Tab PO 40 mg QAM-WM TIMOTHY Administration - Exam General Appearance: NAD, awake alert Eye: PERRL, anicteric sclera ENT: normocephalic atraumatic, no oropharyngeal lesions Neck: no JVD Heart: RRR, no murmur, no gallops, no rubs Respiratory: no wheezes, no rales, no ronchi Respiratory - other findings: diminished breath sounds with mild wheezes Gastrointestinal: soft, non-tender, non-distended, normal bowel sounds Extremities: no cyanosis, no clubbing, no edema Skin: normal turgor, no lesions, no rashes Neurological: cranial nerve grossly intact, normal sensation to touch Musculoskeletal: normal tone, normal strength, no muscle wasting Hosp A/P - Plan CTA: multifocal opacities in the lungs This is a 60 year old female who presented with shortness of breath for the past few weeks, was diagnosed with pneumonia Acute hypoxic respiratory failure secondary to pneumonia - CTA showed multifocal opacities in the lungs. She was recently hospitalized for gastric sleeve surgery one month prior and her shortness of breath started after that - continue IV vancomycin and zosyn Hypokalemia - potassium 3.2, s/p 40 meq Spiculated breast mass - 3.5 cm mass in the right breast. Patient reports history of breast cancer and had lumpectomy earlier this year. Biopsy on 09/2019 showed no malignancy and fat necrosis - patient is due for another mammogram in September
[2020-07-11] MEDS ORDERED: Polyethylene Glycol 3350 17 GM Packet PO PRN (18:49)
[2020-07-12] MEDS: Piperacillin/Tazobactam 4.5 GM in Sodium Chloride 0.9% 100 ML IVPB SCH ×2 (02:14→11:58)
[2020-07-12] MEDS: Enoxaparin Sodium 40 MG/0.4 ML SYRINGE SC SCH (08:39)
[2020-07-12] MEDS: Vancomycin 1 GM in Premix Bag 1 BAG IVPB SCH (08:39)
[2020-07-12] MEDS: Anastrozole 1 MG TAB PO SCH (08:39)
[2020-07-12] MEDS: predniSONE 20 MG TAB PO SCH (08:39)
[2020-07-12 09:24] LABS: Vancomycin, Trough 10.6 ug/mL
[2020-07-12 10:46] LABS: Potassium 3.2 mmol/L (3.5-5.1)
--- NOTE | 2020-07-12 17:52 | PDOC.HOSPP ---
- Subjective Encounter Date: 07/12/20 Encounter Time: 09:00 Subjective: F/u: pneumonia The patient says she feels great and wants to go home. She walked two laps and after the third lap felt short of breath. When I weaned her oxygen to 1L it was 88-89% and recovered to 1.5L at 94%. I explained that she would need oxygen if she wants to go home. All home oxygen companies are closed today. Discussed with Lainey, explained it would cost $2200 out of pocket to pay for her oxygen. The patient states she cannot afford this. The patient reports no bowel movement in one week and wants something for constipation. She does not want a suppository - Objective Vital Signs & Weight: Vital Signs (12 hours) Temp Pulse Resp BP Pulse Ox 07/12/20 16:25 98.8 F 125 H 18 108/67 94 L 07/12/20 14:29 88 14 07/12/20 11:55 99.2 F 115 H 16 108/65 95 07/12/20 08:40 98.4 F 111 H 16 100/62 94 L 07/12/20 07:04 92 14 Weight Weight 203 lb I&O: 07/11/20 07/12/20 07/13/20 06:59 06:59 06:59 Intake Total 120 500 Output Total 400 Balance -280 500 Result Diagrams: 07/12/20 10:13 07/12/20 10:13 Hospitalist ROS - Review of Systems Constitutional: denies: fever, chills - Medication Medications: Active Medications Generic Name Dose Route Start Last Admin Trade Name Toneq PRN Reason Stop Dose Admin Albuterol/Ipratropium 3 ml 07/10/20 22:30 07/12/20 14:29 Ipratropium/Albuterol Sulfate 3 Ml Neb NEB 3 ml [id number] TIMOTHY Administration Anastrozole 1 mg 07/12/20 09:00 07/12/20 08:39 Anastrozole 1 Mg Tab PO 1 mg DAILY TIMOTHY Administration Enoxaparin Sodium 40 mg 07/11/20 09:00 07/12/20 08:39 Enoxaparin Sodium 40 Mg/0.4 Ml Syringe SC 40 mg 0900 TIMOTHY Administration Piperacillin Sod/Tazobactam 100 mls @ 200 mls/hr 07/11/20 02:00 07/12/20 11:58 Sod 4.5 gm/ Sodium Chloride IVPB 100 mls 0200,1000,1800 TIMOTHY Administration Prednisone 40 mg 07/11/20 08:00 07/12/20 08:39 Prednisone 20 Mg Tab PO 40 mg QAM-WM TIMOTHY Administration - Exam General Appearance: NAD, awake alert Eye: PERRL, anicteric sclera ENT: normocephalic atraumatic, no oropharyngeal lesions Neck: no JVD Heart: RRR, no murmur, no gallops, no rubs Respiratory: CTAB, no wheezes, no rales, no ronchi Gastrointestinal: soft, non-tender, non-distended, normal bowel sounds Extremities: no cyanosis, no clubbing, no edema Skin: normal turgor, no lesions, no rashes Neurological: cranial nerve grossly intact, normal sensation to touch, no weakness Hosp A/P - Plan CTA: multifocal opacities in the lungs This is a 60 year old female who presented with shortness of breath for the past few weeks, was diagnosed with pneumonia Acute hypoxic respiratory failure secondary to pneumonia - CTA showed multifocal opacities in the lungs. She was recently hospitalized for gastric sleeve surgery one month prior and her shortness of breath started after that - will switch to oral antibiotics today Hypokalemia - potassium 3.2, s/p 40 meq Spiculated breast mass - 3.5 cm mass in the right breast. Patient reports history of breast cancer and had lumpectomy earlier this year. Biopsy on 09/2019 showed no malignancy and fat necrosis - patient is due for another mammogram in September - ordered senna S/p bariatric surgery - will resume vitamins
[2020-07-12] MEDS ORDERED: Multivitamin W/ Minerals 1 TAB PO SCH (18:00)
[2020-07-12] MEDS ORDERED: Cholecalciferol (Vitamin D3) 400 UNITS TAB PO SCH (18:00)
[2020-07-12] MEDS ORDERED: Senokot 8.6 MG TAB PO SCH (18:00)
[2020-07-12] MEDS ORDERED: Vancomycin 1.5 GRAM/300 ML BAG 1.5 GM in Premix Bag 1 BAG IVPB SCH (22:00)
[2020-07-12] MEDS: Amoxicillin/Potassium Clav 875 MG TAB PO SCH (23:32)
[2020-07-13 07:41] LABS: Hemoglobin 12.4 g/dL (12.0-16.0); Mean Corpuscular HGB CONC 32.2 g/dL (32.0-36.0); Mean Corpuscular Hemoglobin 27.5 pg (27.0-31.0); Mean Corpuscular Volume 85.5 fL (78.0-98.0); Mean Platelet Volume 8.7 fL (7.4-10.4); Platelet Count 220 thou/uL (130-400); RBC Distribution Width 12.9 % (11.5-14.5); White Blood Cell (WBC) Count 12.1 thou/uL (4.8-10.8)
[2020-07-13 08:12] LABS: Anion Gap 14 mmol/L (10-20); BUN (Urea Nitrogen) 11 mg/dL (9.8-20.1); Calc. Creatinine Clearance 106 mL/min (70-130); Calcium 8.6 mg/dL (7.8-10.44); Carbon Dioxide 25 mmol/L (22-29); Chloride 106 mmol/L (98-107); Glucose 91 mg/dL (70-105); Potassium 3.7 mmol/L (3.5-5.1); Sodium 141 mmol/L (136-145)
[2020-07-13] MEDS: predniSONE 20 MG TAB PO SCH (08:25)
[2020-07-13] MEDS: Amoxicillin/Potassium Clav 875 MG TAB PO SCH (08:26)
[2020-07-13] MEDS: Enoxaparin Sodium 40 MG/0.4 ML SYRINGE SC SCH (08:26)
[2020-07-13] MEDS: Anastrozole 1 MG TAB PO SCH (08:26)
[2020-07-13] MEDS ORDERED: Cholecalciferol (Vitamin D3) 400 UNITS TAB PO SCH (09:00)
[2020-07-13] MEDS ORDERED: Multivitamin W/ Minerals 1 TAB PO SCH (09:00)
[2020-07-13] MEDS ORDERED: Senokot 8.6 MG TAB PO SCH (09:00)
[2020-07-13 13:00] VITALS: BP 98/55; TEMP 97.9
--- NOTE | 2020-07-13 17:06 | PDOC.DS.DS ---
Provider - Provider Date of Admission: 07/10/20 20:22 Date of Discharge: 07/13/20 Admitting Provider: Troy Harris MD Course - Hospital Course Hospital Course: Discharge diagnoses: 1. Acute hypoxic respiratory failure secondary to pneumonia 2. Sinus tachycardia 3. Hypokalemia 4. Spiculated breast mass with history of breast cancer HPI: This is a 60-year-old female who presented to the emergency room with progressive shortness of breath that started after she had her gastric bypass surgery. She presented to the emergency room for further work-up. She was hypox ic in room air and had a heart rate of 122. CTA chest showed no PE but multifocal opacities in the lungs. The patient was started on IV antibiotics and admitted for further work-up. Hospital course: Acute proximal respiratory failure secondary to pneumonia: The patient was started on IV zosyn. She stated that her shortness of breath had significantly improved. She had very minimal shortness of breath on the day of discharge. She will be discharged with augmentin for four more days. Her oxygen evaluation showed that her sats were 90 to 91% on room air. When she ambulated and walked two short laps, her saturations remained above 88%. However, after her third lap, her oxygen saturations dropped to 84 to 85% and her heart rate was 125- 140 while ambulating. The patient was asymptomatic with this tachycardia. She requested to go home. All the oxygen companies were closed over the weekend and case management stated that her insurance would not cover her oxygen anyways for a temporary condition. It would cost > $2000 to get oxygen which the patient couldn't afford. I advised her to walk short distances and if she feels short of breath to rest for a few minutes. Sinus tachycardia: I did not prescribe beta-ludy due to cardiac arrest with propranolol in the past and since she was asymptomatic. She should see her PCP on Thursday and if she is still hypoxic after completion of oxygen, consider referral for home oxygen. She does have a loop recorder in place already. Breast mass: Noted 3.5 cm spiculated soft tissue mass in the right breast on 06/13. The patient reports a history of breast cancer and had a lumpectomy earlier this year with Dr. Suarezs. The last biopsy I saw only showed fat necrosis. I did advise the patient to get a follow-up mammogram and follow-up with her PCP in a week. She will resume anastrazole on discharge Resuscitation Status: 07/10/20 21:18 Resuscitation Status Routine Resuscitation Status: FULL: Full Resuscitation - Labs Lab Results: 07/13/20 07:14 07/13/20 07:14 Abnormal Lab Results - Last 48 hrs 07/12/20 10:13: Potassium 3.2 L 07/13/20 07:14: WBC 12.1 H Microbiology - Entire Visit 07/10/20 19:30 Venous blood - Right Hand Blood Culture - Preliminary NO GROWTH AT 48 HOURS 07/10/20 19:30 Venous blood - Left Arm Blood Culture - Preliminary NO GROWTH AT 48 HOURS - Physical Exam Vitals: Vital Signs (12 hours) Temp Pulse Resp BP BP Pulse Ox 07/13/20 12:10 97.9 F 106 H 16 98/55 L 97 07/13/20 08:15 98.6 F 114 H 16 91/52 L 97 07/13/20 07:24 108 H 16 Weight Weight 203 lb Physical Exam: The patient was seen and examined on the day of discharge. Problem - Discharge Plan Plan of Treatment: Follow-up with your primary care doctor in a week and get a repeat ambulatory oxygen to see if you still need oxygen. Get a repeat chest x-ray in 6 weeks. Patient should also have follow-up of spiculated mass seen on her CT abdomen. - Time spent with Patient (mins): 40 Plan - Discharge Medications Prescriptions: Amoxicillin/Potassium Clav [Augmentin] 875 mg PO Q12HR #9 tab Home Medications: Medication Instructions Recorded Confirmed Type Anastrozole 1 mg PO DAILY 05/30/20 07/11/20 History Amoxicillin/Potassium Clav 875 mg PO Q12HR #9 tab 07/13/20 Rx [Augmentin] Allergies: propranolol Allergy (Severe, Verified 07/11/20 04:08) CARDIAC ARREST - Discharge Instructions Activity:: Activity as Tolerated Nourishment:: Heart Healthy Diet - Follow up Plan Referrals: Herbert Daigle Jr, MD [Active] - 7 Days (Please call the office to caitiele a follow up apointment for early next week. Please make sure to discuss the possible need of home oxygen with your doctor.) Disposition: HOME Quality - Care Measures CORE MEASURES:: N/A
--- NOTE | 2020-07-16 08:50 | PQF ---
CLINICAL DOCUMENTATION CLARIFICATION FORM: Dear Dr: Gisela Foy Date / Time: 07/16/2020 08:49 Please exercise your independent, professional judgment in responding to the clarification form. Clinical indicators are provided on the bottom of this form for your review Please check appropriate box(es): [ ] Sepsis due to PNA [ ] Severe sepsis with associated acute organ dysfunction: [ ] Acute respiratory failure [ ] Septic Shock [ X ] Localized infection without sepsis [ ] Other diagnosis, please specify [ ] Unable to determine In addition, please specify: Present on Admission (POA): [ ] Yes [ ] No [ ] Unable to determine Physician Signature: Date/Time: For continuity of documentation, please document condition throughout progress notes and discharge summary. Thank You. To be completed by CDI/Coding staff for physician review: Present Clinical Indicators - Signs / Symptoms / Labs Results and Location in Medical Record [x] CT of chest: Multifocal opacities in the lungs CT of chest 07/10 [x] CC: Shortness of breath ED Notes 07/10 [x] Acute hypoxic respiratory failure secondary to PNA DS 07/13 [x] OR=592/57 Respi=25 Wmrwk=375 Temp=97.5 Vital Signs Flowsheet 07/11 [x] WBC: 07/13=12.1 Laboratory 07/13 [x] Lactic acid: 07/10=1.5 Laboratory 07/10 [x] Blood culture: no growth Laboratory 07/10 [x] SARS: not detected Laboratory 07/10 Present Risk Factors Results and Location in Medical Record [x] Asthma ED Notes 07/10 [x] Breast cancer ED Notes 07/10 [x] PNA DS 07/13 Present Treatments Results and Location in Medical Record [x] Cefepime 2gm IV MAR 07/10 [x] Vancomycin 1.5gram IV MAR 07/10 [x] Zosyn 4.5gm IV MAR 07/11 [x] Amoxicillin 875mg Oral SEP 28 CDS/Registered Occupational Therapist Signature: Jose Eduardo Yeh Phone #: [phone] Date/Time: 07/16/2020 This is a permanent part of the Medical Record [facility]
== END 2020-07-13 13:59 | disposition home or self-care (01) | DRG 193 ==
LOC: ERS 16:09 → EEVIPCON 20:22 → ERHOLD 20:22 → 2NO 07-11 01:12
PROVIDERS: ADMIT Student in an Organized Health Care Education/Training Program; ATTEND Student in an Organized Health Care Education/Training Program
DX: J18.9 Pneumonia, unspecified organism (principal); J96.01 Acute respiratory failure with hypoxia; Z20.828 Contact with and (suspected) exposure to other viral communicable diseases; F32.9 Major depressive disorder, single episode, unspecified; J45.909 Unspecified asthma, uncomplicated; C50.919 Malignant neoplasm of unspecified site of unspecified female breast; E87.6 Hypokalemia; K59.00 Constipation, unspecified; Z98.84 Bariatric surgery status; Z90.710 Acquired absence of both cervix and uterus; Z88.5 Allergy status to narcotic agent; Z79.899 Other long term (current) drug therapy
CPT/HCPCS: 0240U; 36415; 71045; 71275; 80048; 80053; 80202; 83605; 83880; 84132; 84484; 85018; 85025; 85027; 85379; 87040; 93005; 94640; 96361; 96365; 96366; 96367; J0692; J1650; J2543; J3370; J3411; J3490; J7030; J7050; J7512; J7620; Q9967

== ENCOUNTER 2020-08-10 12:01 | Day surgery (SDC) | payer MEDICARE ==
[2020-08-10] MEDS ORDERED: Multivitamins, Adult 10 ML, Thiamine HCl 100 MG, Folic Acid 1 MG in Dextrose 5 %-0.45 %... IV SCH (12:30)
[2020-08-10] MEDS ORDERED: Sodium Chloride 0.9% 1,000 ML IV SCH (12:30)
[2020-08-10] MEDS ORDERED: cefTRIAXone\\ROCEPHIN 1 GM in Sodium Chloride 0.9% 100 ML IVPB SCH (12:30)
--- NOTE | 2020-08-10 12:34 | RAD ---
TWO VIEW CHEST: PA and lateral views obtained. HISTORY: Dyspnea. COMPARISON: Portable film of 07/10/2020. FINDINGS: There continues to be residual hazy infiltrate in both lower lungs. The infiltrates are improved whe n compared to 07/10/2020. Upper lung weeks are clear. Vascular markings normal. Heart and mediastinum unremarkable. IMPRESSION: Persistent hazy bibasilar infiltrates. POS: OFF
[2020-08-10 13:14] LABS: Hemoglobin 14.6 g/dL (12.0-16.0); Mean Corpuscular Hemoglobin 25.6 pg (27.0-31.0); Mean Corpuscular Volume 82.5 fL (78.0-98.0); Mean Platelet Volume 8.9 fL (7.4-10.4); Platelet Count 286 thou/uL (130-400); RBC Distribution Width 14.2 % (11.5-14.5); Red Blood Cell (RBC) Count 5.69 mill/uL (4.20-5.40); White Blood Cell (WBC) Count 14.7 thou/uL (4.8-10.8)
[2020-08-10 13:26] LABS: Band 2 % (5-11); Hypochromia SLIGHT = 6-15 cells (100X) (0-5/hpf); Lymphocytes 11 % (21-51); MDiff Complete? YES; Monocytes 2 % (0-10); Neutrophil 84 % (42-75); Platelet Morphology Comment Appears Adequate; Reactive Lymphocytes 1 % (0-10)
[2020-08-10 13:41] LABS: ALT (SGPT) 84 U/L (8-55); AST (SGOT) 93 U/L (5-34); Albumin 3.1 g/dL (3.5-5.0); Alkaline Phosphatase 73 U/L (40-110); Anion Gap 18 mmol/L (10-20); BUN (Urea Nitrogen) 13 mg/dL (9.8-20.1); Bilirubin, Total 1.2 mg/dL (0.2-1.2); Calc. Creatinine Clearance 0 mL/min (70-130); Calcium 9.2 mg/dL (7.8-10.44); Carbon Dioxide 24 mmol/L (22-29); Chloride 95 mmol/L (98-107); Globulin 5.1 g/dL (2.4-3.5); Glucose 115 mg/dL (70-105); Potassium 4.3 mmol/L (3.5-5.1); Protein, Total 8.2 g/dL (6.0-8.3); Sodium 133 mmol/L (136-145)
[2020-08-10 15:33] LABS: Bilirubin Negative (Negative); Blood, Urine Trace (Negative); Clarity Turbid (Clear); Glucose, Urine (Dipstick) Normal (Negative); Ketone, Urine 10 mg/dL (Negative); Leukocyte 500 Leu/uL (Negative); Nitrite Negative (Negative); Protein, Urine (Dipstick) 30 mg/dL (Neg-Trace); Specific Gravity, Urine 1.016 (1.002-1.036); Urobilinogen Normal mg/dL (Less than 2); pH, Urine 5.5 (5.0-9.0)
[2020-08-10 15:34] LABS: Bacteria/HPF 1+ HPF (None Seen)
== END 2020-08-10 15:13 | disposition home or self-care (01) ==
LOC: ONC/OP 12:01
PROVIDERS: ATTEND Family Medicine
DX: E86.0 Dehydration (principal); J18.9 Pneumonia, unspecified organism; Z88.8 Allergy status to other drugs, medicaments and biological substances
CPT/HCPCS: 71046; 80053; 81001; 85025; 96361; 96365; 96367; 99211; G0463; J0696; J3411; J3490; J7042

== ENCOUNTER 2020-08-27 10:26 | Outpatient (CLI) | payer MEDICARE ==
[2020-08-27 20:48] LABS: SARS-CoV-2 PCR by NAA Not Detected (NotDetected)
== END 2020-08-27 10:27 | disposition home or self-care (01) ==
LOC: LABBT 10:26
PROVIDERS: ATTEND Specialist
DX: K21.9 Gastro-esophageal reflux disease without esophagitis (principal); Z20.822 Contact with and (suspected) exposure to COVID-19
CPT/HCPCS: U0003; U0005; 87635

== ENCOUNTER 2020-08-30 10:00 | Outpatient (CLI) | payer MEDICARE | END 2020-08-30 10:01 | disposition home or self-care (01) | LOC: RAD 10:00 | PROVIDERS: ATTEND Specialist | DX: K21.9 Gastro-esophageal reflux disease without esophagitis (principal); K76.0 Fatty (change of) liver, not elsewhere classified; T85.598A Other mechanical complication of other gastrointestinal prosthetic devices, implants and grafts, initial encounter | CPT/HCPCS: 74150; 74246 ==